=== PATIENT | male | born 1985 | race Caucasian/White ===

== ENCOUNTER → 2024-11-20 | Outpatient (CLI) | payer OTHER ==
[2024-11-20 15:25] LABS: HCT 53.2 % (39.6-50.0); HGB 17.7 g/dL (13.0-17.0); MCH 27.2 pg (27.0-32.0); MCHC 33.3 g/dL (32.0-37.0); MCV 81.8 FL (80.0-97.0); NRBC Per 100 WBC 0 X 10*3/uL (0.00-0.01); Platelet Count 251 X 10*3/uL (140-440); RBC 6.50 X 10*6/uL (4.40-5.60); RDW 13.1 % (11.5-14.5); WBC 6.72 X 10*3/uL (4.50-10.00)
[2024-11-20 15:36] LABS: Prostate Specific Antigen 0.62 ng/mL (0.000-2.500)
== END | disposition home or self-care (01) ==
LOC: LABWHC1 08:18
PROVIDERS: ATTEND Internal Medicine Endocrinology, Diabetes & Metabolism
DX: E29.1 Testicular hypofunction (principal)
CPT/HCPCS: 36415; 82533; 84146; 84153; 84305; 84403; 84443; 85027